=== PATIENT | male | born 1980 | race Two or more races ===

== ENCOUNTER 2018-08-12 04:13 | Emergency (ER) | payer MEDICAID ==
[~2018-08-12] VITALS: Ht 167.6 cm; Wt 83.9 kg
[2018-08-12 04:31] VITALS: BP 134/74
[2018-08-12] MEDS ORDERED: IBUPROFEN600 MG ORAL (04:50)
[2018-08-12] MEDS ORDERED: OFLOXACIN5 ML RIGHT EAR (04:50)
[2018-08-12 04:59] VITALS: BP 134/74
--- NOTE | 2018-08-12 21:37 | Emergency Room Report ---
History of Present Illness General Chief Complaint: Earache Source: Patient Present Illness HPI 38-year-old male presents ED for evaluation. Complaining of right ear pain for the last 3 days. States he went swimming 3 days ago. Pain is throbbing, 9 out of 10, nonradiating. States he's been using [id number] eardrops without relief. Denies fevers or chills. Denies sore throat or cough. Denies sick contacts or recent travel. No other aggravating relieving factors. Denies any other associated symptoms Allergies: Coded Allergies: No Known Allergies (Unverified , 08/12/18) Patient History Past Medical History: none Past Surgical History: none Pertinent Family History: none Social History: Denies: smoking, alcohol use, drug use Immunizations: UTD Reviewed Nursing Documentation: PMH: Agreed; PSxH: Agreed Nursing Documentation-PMH Past Medical History: No Stated History Review of Systems All Other Systems: negative except mentioned in HPI Physical Exam Vital Signs Date Time Temp Pulse Resp B/P (MAP) Pulse Ox O2 Delivery O2 Flow Rate FiO2 08/12/18 04:20 98.8 104 16 97 Room Air 08/12/18 04:31 134/74 Sp02 EP Interpretation: reviewed, normal General Appearance: no apparent distress, alert, GCS 15, non-toxic Head: normocephalic Eyes: bilateral eye normal inspection, bilateral eye PERRL ENT: hearing grossly normal, normal pharynx, no angioedema, normal voice, other - unable to visualize R TM, R ear canal swollen Neck: full range of motion, supple, no meningismus, supple/symm/no masses Respiratory: chest non-tender, lungs clear, normal breath sounds, speaking full sentences Cardiovascular #1: regular rate, rhythm, no edema Gastrointestinal: normal inspection Rectal: deferred Genitourinary: no CVA tenderness Musculoskeletal: normal inspection Neurologic: alert, oriented x3, responsive, motor strength/tone normal, sensory intact, speech normal Psychiatric: normal inspection Skin: normal inspection Lymphatic: normal inspection Medical Decision Making Diagnostic Impression: Primary Impression: Otitis externa Qualified Codes: H60.501 - Unspecified acute noninfective otitis externa, right ear ER Course Hospital Course 38-year-old M presents to ED with pain R ear. Differential diagnoses include: TM perforation, otitis externa, otitis media Clinical course Patient placed on stretcher. After initial history, physical exam reveals a male in no acute distress. Right ear canal markedly swollen. Unable to visualize right TM. Consideration for otitis externa Discussed findings with patient. Using forceps I placed an ear wick in the right ear canal. Inflated with saline. Explained to patient that this will be a conduit to apply antibiotic drops Safe for discharge close outpatient follow-up. Does not have a PMD. We'll provide referrals Diagnosis - otitis externa Stable and discharged to home with Rx ofloxacin otic. Followup with PMD. Return to ED if symptoms recur or worsen Last Vital Signs Date Time Temp Pulse Resp B/P (MAP) Pulse Ox O2 Delivery O2 Flow Rate FiO2 08/12/18 04:59 98.8 98 16 134/74 97 Room Air Status: improved Disposition: HOME, SELF-CARE Condition: Stable Scripts Ibuprofen* (MOTRIN*) 600 Mg Tablet 600 MG ORAL Q8H PRN for For Pain, #30 TAB 0 Refills Prov: Jordi Alonzo MD 08/12/18 Ofloxacin (OFLOXACIN) 5 Ml Drops 10 DROP RIGHT EAR DAILY for 7 Days, ML Prov: Jordi Alonzo MD 08/12/18 Referrals: NOT CHOSEN IPA/,REFERRING (PCP) Amy Gary MD Patient Instructions: Otitis Externa, [id number] Jordi Alonzo MD August 12, 2018 21:37
== END 2018-08-12 04:58 | disposition home or self-care (01) ==
LOC: EMR 04:33
DX: H60.501 Unspecified acute noninfective otitis externa, right ear (principal)
CPT/HCPCS: 99282